=== PATIENT | female | born 1995 | race Caucasian/White ===

== ENCOUNTER 2017-06-08 19:24 | Emergency (ER) | payer MEDICAID ==
[2017-06-08 19:30] VITALS: TEMP 101.5
--- NOTE | 2017-06-08 19:39 | EDPHY ---
H & P Stated Complaint: post-op 06/03 fever, chills nausea, bodyaches HPI/ROS: CHIEF COMPLAINT: Fever, nausea, aches; 5 days post-op HISTORY OF PRESENT ILLNESS: The patient is a 21 y/o female who is 5 days s/p left ACL repair, complaining of fever, nausea, and body aches. She also complains of a sore throat and intermittent shortness of breath. Her symptoms began 2 days ago. She took aspirin at 09:00, 11 hours ago. She was also prescribed oxycodone for her knee surgery, but she last took this 2 days ago. Denies headache, cough, abdominal pain, vomiting, diarrhea, urinary complaints or other pertinent symptoms. She has not had an influenza vaccination. She has not noticed new swelling of either lower extremity. REVIEW OF SYSTEMS: A ten point review of systems was performed and is negative with the exception of the items mentioned in the HPI. Past medical history: Denies Past surgical history: ACL repair on 06/03/17, 5 days ago Family history: Noncontributory Social history: Boyfriend at bedside Lives in [facility] PHYSICAL EXAM: General Appearance: Alert. Vital signs reviewed. Temperature 38.6degrees, heart rate 107. Eyes: Pupils equal and round, no conjunctival injection, no discharge. Anicteric. ENT, Mouth: Mucous membranes are moist, pharyngeal erythemic, no edema. Neck: Anterior cervical lymphadenopathy, supple. No meningismus. Respiratory: Lungs are clear to auscultation; no wheezes, rales, or rhonchi. Cardiovascular: Mildly tachycardic. Regular rhythm; no murmur, rub, or gallop. Gastrointestinal: Abdomen is soft and nontender, no masses or organomegaly, bowel sounds normal. Skin: Warm and dry, no rashes on exposed skin, normal color. Back: Nontender to palpation over the thoracolumbar spine. No CVAT. Extremities: Left knee sutures clean and dry. Knee is not warm to the touch. No significant lower extremity edema, no calf tenderness or swelling. Neurological: Alert and oriented. Moving all four extremities easily. Psychiatric: Normal affect. - Personal History Current Tetanus Diphtheria and Acellular Pertussis (TDAP): Yes - Medical/Surgical History Hx Asthma: No Hx Chronic Respiratory Disease: No Hx Diabetes: No Hx Cardiac Disease: No Hx Renal Disease: No Hx Cirrhosis: No Hx Alcoholism: No Hx HIV/AIDS: No Hx Splenectomy or Spleen Trauma: No Other PMH: 8ACLS repair - Social History Smoking Status: Never smoked Constitutional: Initial Vital Signs Temperature (C) 38.6 C H 06/08/17 19:27 Heart Rate 107 H 06/08/17 19:27 Respiratory Rate 20 06/08/17 19:27 Blood Pressure 111/83 H 06/08/17 19:27 O2 Sat (%) 96 06/08/17 19:27 O2 Delivery Mode Room Air Allergies/Adverse Reactions: No Known Allergies Allergy (Unverified 06/08/17 19:30) Medical Decision Making ED Course/Re-evaluation: The patient is a 21 y/o female who is 5 days post-op from an ACL repair, presenting with erythema to her pharyngitis and anterior cervical lymphadenopathy. She received 1 L IV normal saline, Tylenol 650 mg, and 1 oral Percocet 5/325 while in the ED. 2052: Reassessed patient, she is still having body aches and her right knee is starting to have pain. 1 tab PO Percocet administered for her knee pain. 2199: Patient is sleeping. Awaiting results of influenza testing. Rapid strep negative. Influenza negative. Fever has resolved.. 2209: Reassessed patient and discussed negative laboratory results. Return precautions discussed; patient is comfortable with this plan. Symptomatic treatment advised. This includes fever control. I do not think that her recent symptoms are related to her knee surgery. I do not suspect postoperative infection at this point in time. There is no significant swelling, warmth, or erythema of the left knee. She is not hypoxic or tachypneic and I do not suspect PE. She was initially tachycardic but this resolved. Differential Diagnosis: Fever in adults including but not limited to pneumonia, urinary tract infection , viral syndrome, and influenza. - Data Points Medications Given: Discontinued Medications Acetaminophen (Tylenol) 650 mg PO EDNOW ONE Stop: 06/08/17 19:49 Last Admin: 06/08/17 19:52 Dose: 650 mg Sodium Chloride (Ns) 1,000 mls @ 0 mls/hr IV ONCE ONE; Wide Open PRN Reason: Protocol Stop: 06/08/17 19:48 Last Admin: 06/08/17 20:00 Dose: 1,000 mls Oxycodone/Acetaminophen (Percocet 5/325) 1 tab PO EDNOW ONE Stop: 06/08/17 20:54 Last Admin: 06/08/17 21:05 Dose: 1 tab Departure - Departure Disposition: Home, Routine, Self-Care Clinical Impression: Viral syndrome Condition: Good Instructions: Viral Syndrome (ED) Additional Instructions: 1. Adult Pain & Fever Control: We recommend Acetaminophen (Tylenol) and Ibuprofen (Motrin,Advil) for pain and fever control. When fever is high or pain severe, both drugs can be used at the same time, but at different intervals. Please note the time differences. Your dose is: Acetaminophen 650mg every 4 to 6 hours Ibuprofen 400mg every 4 hours with food Note: do not take Acetaminophen with Hydrocodone (Vicodin, Lortab) or Oycodone (Percocet). These medications also contain Acetaminophen. No more than 3000mg of Acetaminophen should be taken in 24 hours (for an adult). 2. Follow up with your primary care provider in the next week for worsening symptoms. 3. Return to the ED if you experience weakness, numbness, chest pain or other severe worsening of your symptoms. Referrals: Freedom Lam MD [Medical Doctor] - As per Instructions [facility],. [Clinic] - As per Instructions Report Scribed for: Rosa Isela Scott Report Scribed by: Jacey Holman Date of Report: 06/08/17 Time of Report: 19:40 Physician Review and Approval Statement: 06/08/17 19:39 Portions of this note were transcribed by the medical lab tech instructor. I, Dr. Rosa Isela Scott, personally performed the history, physical exam, and medical decision- making; and confirmed the accuracy of the information in the transcribed note.
[2017-06-08] MEDS ORDERED: NS 1,000 ML IV ONE (19:47)
[2017-06-08] MEDS ORDERED: ACETAMINOPHEN 325 MG TAB PO ONE (19:48)
[2017-06-08] MEDS ORDERED: OXYCODONE/APAP 5/325 TAB PO ONE (20:53)
[2017-06-08 22:19] VITALS: BP 105/62; PULSE 78; RESP 14; O2SAT 97
== END 2017-06-08 22:19 | disposition home or self-care (01) ==
DX: B34.9 Viral infection, unspecified (principal); E86.9 Volume depletion, unspecified